=== PATIENT | male | born 1975 | race Caucasian/White ===

== ENCOUNTER 2016-06-09 08:50 | Emergency (ER) | payer BC ==
[2016-06-09] MEDS ORDERED: ONDANSETRON 4 MG VIAL ONE (11:13)
[2016-06-09] MEDS ORDERED: ALU/MAG/SIM 30 ML UDC ONE (11:49)
[2016-06-09] MEDS ORDERED: LIDOCAINE 2% VISC 15 ML UDC ONE (11:49)
== END 2016-06-09 12:15 | disposition home or self-care (01) ==
LOC: ER 08:50
DX: N30.00 Acute cystitis without hematuria (principal); R55 Syncope and collapse
CPT/HCPCS: 36415; 74020; 80053; 81001; 83690; 85025; 87088; 96374